=== PATIENT | female | born 1960 | race Two or more races ===

== ENCOUNTER 2020-11-05 13:30 | Outpatient (CLI) | payer MEDICARE | END 2020-11-05 23:59 | disposition home health service (06) | LOC: WOU 13:30 | PROVIDERS: ATTEND Surgery | DX: T81.31XA Disruption of external operation (surgical) wound, not elsewhere classified, initial encounter (principal); T86.821 Skin graft (allograft) (autograft) failure; G89.4 Chronic pain syndrome; R19.7 Diarrhea, unspecified | CPT/HCPCS: 11043; A6209 ==